=== PATIENT | female | born 1995 | race American Indian/Alaskan Native ===

== ENCOUNTER 2019-08-01 20:28 | Inpatient (IN) | payer OTHER ==
[2019-08-01] MEDS ORDERED: miSOPROStol 25 MCG TAB VG PRN (21:56)
[2019-08-01] MEDS ORDERED: LACTATED RINGERS 1,000 ML ONE (22:29)
[2019-08-01] MEDS ORDERED: NALOXONE 0.4 MG/1 ML INJ IV PRN (23:40)
[2019-08-01] MEDS ORDERED: TERBUTALINE 1 MG/1 ML INJ SUB-Q PRN (23:40)
[2019-08-01] MEDS ORDERED: ePHEDrine SULFATE 50 MG/1 ML INJ IV PRN (23:40)
[2019-08-01] MEDS ORDERED: fentaNYL 100 MCG/2 ML INJ IV PRN (23:40)
[2019-08-01] MEDS ORDERED: LIDOCAINE (2%) 20 MG/1 ML VIAL 20 ML MDV INFILTRATI ONE (23:40)
[2019-08-01] MEDS ORDERED: MINERAL OIL 30 ML ORAL LIQD PO PRN (23:40)
[2019-08-01] MEDS ORDERED: PROMETHAZINE 25 MG TAB PO PRN (23:40)
[2019-08-01] MEDS ORDERED: TERBUTALINE 1 MG/1 ML INJ IVP PRN (23:40)
[2019-08-01] MEDS ORDERED: BUTORPHANOL 2 MG/1 ML INJ IV PRN (23:40)
[2019-08-01] MEDS ORDERED: LACTATED RINGERS 1,000 ML IV SCH ×2 (23:45)
[2019-08-01] MEDS ORDERED: OXYTOCIN DRIP 30 UNITS/500 ML BAG IV SCH ×2 (23:45)
[2019-08-02 00:22] LABS: Basophils % (Auto) 0.2 % (0.0-1.8); Eosinophils % (Auto) 0.3 % (0.0-4.3); Hematocrit 24.4 % (30.3-42.9); Hemoglobin 7.3 gm/dl (10.1-14.3); Lymphocytes # (Auto) 3.1 K/mm3 (1.2-5.4); Mean Corpuscular HGB Conc 30 % (30-34); Monocytes # (Auto) 1.1 K/mm3 (0.0-0.8); Monocytes % (Auto) 9.7 % (0.0-7.3); Platelet Count 244 K/mm3 (140-440); Red Blood Count 4.17 M/mm3 (3.65-5.03)
[2019-08-02 00:30] LABS: Mean Corpuscular Volume 58 fl (79-97); Red Cell Distribution Width 20.5 % (13.2-15.2)
[2019-08-02] MEDS ORDERED: NALOXONE 2 MG/2 ML INJ IV PRN (02:33)
[2019-08-02] MEDS ORDERED: ePHEDrine SULFATE 50 MG/1 ML INJ IV PRN (02:33)
--- NOTE | 2019-08-02 02:34 | Anesthesia Consultation ---
Anesthesia Consult and Med Hx Date of service: 08/02/19 - Airway Anesthetic Teeth Evaluation: Good ROM Head & Neck: Adequate Mental/Hyoid Distance: Adequate Mallampati Class: Class II Intubation Access Assessment: Probably Good - Pulmonary Exam CTA: Yes - Cardiac Exam Cardiac Exam: RRR - Pre-Operative Health Status ASA Pre-Surgery Classification: ASA2 Proposed Anesthetic Plan: Epidural - Pulmonary Hx Asthma: No - Cardiovascular System Hx Hypertension: No - Central Nervous System Hx Seizures: No Hx Psychiatric Problems: No - Endocrine Hx Renal Disease: No Hx Hypothyroidism: No Hx Hyperthyroidism: No - Hematic Hx Anemia: Yes Hx Sickle Cell Disease: No - Other Systems Hx Alcohol Use: Yes (Socially- last 2017)
[2019-08-02] MEDS ORDERED: fentaNYL-BUPIV 2 MCG/ML-0.125% 200 MCG/100 ML BAG EPIDURAL SCH (03:00)
[2019-08-02] MEDS: OXYTOCIN 20 UNIT/1000ML DRIP 20 UNITS/1,000 ML BAG IV SCH ×2 (04:50→06:46)
[2019-08-02] MEDS ORDERED: METHYLERGONOVINE MALEATE 0.2 MG/ML VIAL IM ONE ×2 (05:12→05:52)
--- NOTE | 2019-08-02 05:20 | History and Physical Report ---
History of Present Illness Date of examination: 08/02/19 Date of admission: 08/01/19 20:28 Chief complaint: I'm here to be induced History of present illness: Pt is a 24 year old who presents for induction of labor at 40.2 weeks gestation. Pt has had an uncomplicated course. Her GBS is negative. 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 Family/Genetic History: none Social history: - Obstetrical History Expected Date of Delivery: 07/30/19 Actual Gestation: 40 Week(s) 3 Day(s) : 3 Number of Living Children: 2 Medications and Allergies Allergies Allergy/AdvReac Type Severity Reaction Status Date / Time No Known Allergies Allergy Verified 08/01/19 22:05 Active Meds: Active Medications Butorphanol Tartrate (Stadol) 2 mg IV Q2H PRN PRN Reason: Pain , Severe (7-10) Last Admin: 08/02/19 01:54 Dose: 2 mg Documented by: Ephedrine Sulfate (Ephedrine Sulfate) 10 mg IV Q2M PRN PRN Reason: Hypotension Fentanyl (Sublimaze) 100 mcg IV Q2H PRN PRN Reason: Labor Pain Oxytocin/Sodium Chloride (Pitocin/Ns 20 Unit/1000ml Drip) 20 units in 1,000 mls @ 125 mls/hr IV DIRECT AMOS Oxytocin/Sodium Chloride (Pitocin/Ns 30 Unit/500ml) 30 units in 500 mls @ 1 mls/hr IV TITR AMOS; Protocol Oxytocin/Sodium Chloride (Pitocin/Ns 30 Unit/500ml) 30 units in 500 mls @ 4 mls/hr IV TITR AMOS; Protocol Lactated Ringer's (Lactated Ringers) 1,000 mls @ 125 mls/hr IV DIRECT AMOS Last Admin: 08/02/19 03:17 Dose: 125 mls/hr Documented by: Fentanyl/Bupivacaine/Sodium Chlor (Fentanyl-Bupiv 2 Mcg/Ml-0.125%) 200 mcg in 100 mls @ 12 mls/hr EPIDURAL TITR AMOS; Protocol Last Admin: 08/02/19 03:14 Dose: 12 mls/hr Documented by: Methylergonovine Maleate (Methergine) 0.2 mg IM ONCE ONE Stop: 08/02/19 05:13 Mineral Oil (Mineral Oil) 30 ml PO QHS PRN PRN Reason: Constipation Misoprostol (Cytotec) 25 mcg VG Q4H PRN PRN Reason: Labor Induction Last Admin: 08/01/19 22:22 Dose: 25 mcg Documented by: Naloxone HCl (Narcan 2 Mg/2 Ml) 0.2 mg IV Q5M PRN PRN Reason: Respiratory sedation Promethazine HCl (Phenergan) 25 mg PO Q6H PRN PRN Reason: Nausea And Vomiting Last Admin: 08/02/19 01:58 Dose: 25 mg Documented by: Terbutaline Sulfate (Brethine) 0.25 mg SUB-Q ONCE PRN PRN Reason: Hyperstimulation/Hypertonicity Terbutaline Sulfate (Brethine) 0.25 mg IVP ONCE PRN PRN Reason: Hyperstimulation/Hypertonicity Review of Systems All systems: negative Eyes: deferred Gastrointestinal: abdominal pain Genitourinary: pelvic pain, contractions Rectal Exam: deferred - Vital Signs Vital signs: Vital Signs Pulse BP 93 H 133/79 08/01/19 20:51 08/01/19 20:51 Temp Pulse Resp BP Pulse Ox 97.6 F 88 18 100/58 100 08/02/19 03:13 08/02/19 05:09 08/01/19 21:20 08/02/19 05:04 08/02/19 05:09 - Physical Exam Breasts: Positive: deferred Cardiovascular: Regular rate, Normal S1, Normal S2 Lungs: Positive: Clear to auscultation, Normal air movement Abdomen: Positive: normal appearance, soft, normal bowel sounds Genitourinary (Female): Positive: normal external genitalia, normal perenium Vagina: Positive: normal moisture Extremities: Positive: normal - Obstetrical FHR: auscultation normal Uterine Contraction Monitor Mode: External Cervical Dilatation: 0 Cervical Effacement Percentage: 50 station: -3 Results Result Diagrams: 08/01/19 21:15 Abnormal lab results 08/01/19 Range/Units 21:15 WBC 11.1 H (4.5-11.0) K/mm3 Hgb 7.3 L (10.1-14.3) gm/dl Hct 24.4 L (30.3-42.9) % MCV 58 L (79-97) fl MCH 18 L (28-32) pg RDW 20.5 H (13.2-15.2) % Morton % (Auto) 9.7 H (0.0-7.3) % Morton # 1.1 H (0.0-0.8) K/mm3 All other labs normal. Assessment and Plan IUP at 40.2 weeks here for induction of labor. Admit to L&D. Place cytotec. AROM when able. Anticipate .
--- NOTE | 2019-08-02 05:42 | Procedure Note ---
OB Delivery Note - Delivery Date of Delivery: 08/02/19 Surgeon: KIMBERLY VARMA Estimated blood loss: 500cc - Vaginal Delivery presentation: vertex Delivery position: OA Intrapartum events: shoulder dystocia (per portable trackman) Delivery induction: misoprostol Delivery monitor: external FHT, external uterine Route of delivery: Delivery placenta: spontaneous Delivery cord: 3 umbilical vessels Delivery laceration: none Delivery comments: Pt became fully dilated and began involuntarily pushing while MD en route. Yun Somers CNM called to attend delivery. Loose nuchal easily reduced on perineum. Per portable trackman some resistance encountered when delivering shoulder and Sterling maneuver employed. Placenta delivered spontaneously and intact. Moderate gush of blood post placenta. No lacerations. Pt tolerated procedure well. - Infant A at 1 minute: 7 at 5 minutes: 9 Infant Gender: Male (8 pounds 8 ounces)
[2019-08-02 05:58] LABS: Hematocrit 24.8 % (30.3-42.9); Hemoglobin 7.3 gm/dl (10.1-14.3)
[2019-08-02] MEDS ORDERED: HYDROcodone/ACETAMINOPHEN 5-325 MG TAB PO PRN (11:03)
[2019-08-02] MEDS ORDERED: PROMETHAZINE 25 MG TAB PO PRN (11:03)
[2019-08-02] MEDS ORDERED: diphenhydrAMINE 25 MG CAP PO PRN (11:03)
[2019-08-02] MEDS ORDERED: MAGNESIUM HYDROXIDE (MOM) ORAL LIQD UDC PO PRN (11:03)
[2019-08-02] MEDS ORDERED: LANOLIN/ZINC/DIMETHICONE (LANSINOH) 7 GM TP PRN (11:03)
[2019-08-02] MEDS ORDERED: PROMETHAZINE 25 MG RECT SUPP PR PRN (11:03)
[2019-08-02] MEDS ORDERED: WITCH HAZEL/ GLYCERIN PAD TP PRN (11:03)
[2019-08-02] MEDS ORDERED: ACETAMINOPHEN 325 MG TAB PO PRN (11:03)
[2019-08-02] MEDS ORDERED: ONDANSETRON 4 MG/2 ML INJ IV PRN (11:03)
[2019-08-02] MEDS: IBUPROFEN 600 MG TAB PO SCH ×2 (12:13→18:37)
[2019-08-02] MEDS: PRENATAL VIT27-FE FUMARATE-FOLIC ACID VIT TAB PO SCH (12:13)
[2019-08-02] MEDS: DOCUSATE SODIUM 100 MG CAP PO SCH (12:13)
[2019-08-02 16:25] LABS: Hemoglobin 4.8 gm/dl (10.1-14.3)
[2019-08-02] MEDS ORDERED: SODIUM CHLORIDE 0.9% 500 ML 500 ML IV SCH (17:31)
[2019-08-03] MEDS: DOCUSATE SODIUM 100 MG CAP PO SCH ×2 (01:05→08:54)
[2019-08-03] MEDS: IBUPROFEN 600 MG TAB PO SCH ×2 (01:05→08:54)
[2019-08-03] MEDS: PRENATAL VIT27-FE FUMARATE-FOLIC ACID VIT TAB PO SCH (08:54)
--- NOTE | 2019-08-03 10:10 | Progress Note ---
Assessment and Plan PPD 1 s/p . Doing well. Pt was offered blood transfusion but refused. She has no complaints of dizziness or SOB today. Plan for discharge on today with Fe supplements if baby ok to go. Subjective - Subjective Date of service: 08/03/19 Interval history: Pt is a 24 year old who presents for induction of labor at 40.2 weeks gestation. Pt has had an uncomplicated course. Her GBS is negative. Patient reports: appetite normal, voiding normally, pain well controlled, ambulating normally : doing well Objective - Vital Signs Latest vital signs: Vital Signs Temp Pulse Resp BP Pulse Ox 08/03/19 01:59 88 119/71 08/03/19 00:35 98.3 F 108 H 18 140/86 97 08/02/19 15:55 99.2 F 101 H 18 135/74 Intake and Output 08/02/19 08/03/19 08/03/19 22:59 06:59 14:59 Intake Total 720 240 Output Total 1100 Balance -380 240 Intake: Oral 720 Intake, Free Water 240 Output: Urine 1100 Void 1100 Other: Total, Intake Amount 240 Total, Output Amount 400 # Voids Void 1 1 - Exam Cardiovascular: Present: Regular rate, Normal S1, Normal S2 Lungs: Present: Clear to auscultation, Normal air movement Abdomen: Present: normal appearance, soft, normal bowel sounds Uterus: Present: normal, firm Extremities: Present: normal Deep Tendon Reflex Grade: Normal +2 - Labs Labs: Abnormal lab results 08/01/19 08/02/19 Range/Units 21:15 16:11 Hgb 4.8 L* (10.1-14.3) gm/dl Hct 16.0 L* D (30.3-42.9) % Crossmatch See Detail
--- NOTE | 2019-08-03 10:12 | Discharge Summary ---
Providers - Providers Date of Admission: 08/01/19 20:28 Date of discharge: 08/03/19 Attending physician: KIMBERLY VARMA Primary care physician: KIMBERLY VARMA Hospitalization Reason for admission: induction of labor Delivery: Episiotomy: none Laceration: none complications: other (anemia) Discharge diagnosis: IUP at term delivered baby: male Condition at discharge: Good Disposition: DC-01 TO HOME OR SELFCARE Plan - Discharge Medications Prescriptions: Docusate Sodium [Colace] 100 mg PO BID #60 capsule Ferrous Sulfate [Feosol 325 MG tab] 325 mg PO TID #90 tablet Ibuprofen [Motrin] 800 mg PO Q8HR PRN #40 tablet PRN Reason: Pain, Moderate (4-6) - Provider Discharge Summary Activity: routine, no sex for 6 weeks, no heavy lifting 4 weeks, no strenuous exercise Diet: routine Instructions: routine Additional instructions: [] Smoking cessation referral if applicable(refer to patient education folder for contact #) [] Refer to [facility] Booklet Call your doctor immediately for: * Fever > 100.5 * Heavy vaginal bleeding ( >1 pad per hour) * Severe persistent headache * Shortness of breath * Reddened, hot, painful area to leg or breast * Drainage or odor from incision. * Keep incision clean and dry at all times and follow doctor's instructions regarding bathing/showering - Follow up plan Follow up: KIMBERLY VARMA MD [Primary Care Provider] - 6 Weeks
--- NOTE | 2019-08-03 12:23 | Progress Note ---
Assessment and Plan - Patient Problems (1) Anemia Current Visit: Yes Status: Acute Plan to address problem: discharge home blood transfusion refused by patient Subjective - Subjective Date of service: 08/03/19 Interval history: Patient is aware of her hemoglobin level. She denies any chest pain, SOB, or dizziness. Patient was encouraged to receive a transfusion however she refuses. Discussed the risk of severe anemia and signs and symptoms she should be aware. Patient desires to be discharged. Objective - Vital Signs Latest vital signs: Vital Signs Temp Pulse Resp BP BP Pulse Ox 08/03/19 09:14 119 H 18 129/78 98 08/03/19 01:59 88 119/71 08/03/19 00:35 98.3 F 108 H 18 140/86 97 08/02/19 15:55 99.2 F 101 H 18 135/74 Intake and Output 08/02/19 08/03/19 08/03/19 22:59 06:59 14:59 Intake Total 720 240 840 Output Total 1100 Balance -380 240 840 Intake: Oral 720 120 Intake, Free Water 240 720 Output: Urine 1100 Void 1100 Other: Total, Intake Amount 240 120 Total, Output Amount 400 # Voids Void 1 1 1 - Labs Labs: Abnormal lab results 08/01/19 08/02/19 Range/Units 21:15 16:11 Hgb 4.8 L* (10.1-14.3) gm/dl Hct 16.0 L* D (30.3-42.9) % Crossmatch See Detail
[2019-08-03 14:34] VITALS: BP 119/78
== END 2019-08-03 13:00 | disposition home or self-care (01) | DRG 807 ==
LOC: LD 20:28 → OB 08-02 10:24
PROVIDERS: ADMIT Obstetrics & Gynecology; ATTEND Obstetrics & Gynecology
PROC: 10E0XZZ Delivery of Products of Conception, External Approach (ICD-10-PCS; principal; 2019-08-02)
PROC: 10907ZC Drainage of Amniotic Fluid, Therapeutic from Products of Conception, Via Natural or Artificial Opening (ICD-10-PCS; 2019-08-02)
PROC: 3E033VJ Introduction of Other Hormone into Peripheral Vein, Percutaneous Approach (ICD-10-PCS; 2019-08-02)
DX: O66.0 Obstructed labor due to shoulder dystocia (principal); Z37.0 Single live birth; O99.02 Anemia complicating childbirth; D64.9 Anemia, unspecified; O69.81X0 Labor and delivery complicated by cord around neck, without compression, not applicable or unspecified; Z3A.40 40 weeks gestation of pregnancy; Z86.19 Personal history of other infectious and parasitic diseases
CPT/HCPCS: 36415; 85014; 85018; 85025; 86850; 86900; 86901; 86920; 88307; 96372; G0378; J0595; J2590; J7120; Q0169